=== PATIENT | female | born 2000 | race Two or more races ===

== ENCOUNTER 2024-10-14 02:08 | Emergency (ER) | payer OTHER ==
[~2024-10-14] VITALS: Ht 165.1 cm; Wt 58.4 kg
[2024-10-14 02:30] VITALS: BP 143/57; PULSE 83; RESP 18; O2SAT 100
[2024-10-14] MEDS ORDERED: ACET500T58 PO (03:59)
[2024-10-14] MEDS ORDERED: CEPH500C PO (03:59)
--- NOTE | 2024-10-14 04:01 | ED.PDOC ---
HPI Comments 23-YEAR-OLD FEMALE PRESENTS TO ER WITH COMPLAINTS OF LACERATION TO RIGHT 3RD TOE X1 DAY. PATIENT REPORTS THAT A GLASS CUP FELL AND HIT HER RIGHT 3RD TOE AT 12:00 A.M. PRIOR TO ARRIVAL TO ER AND SUSTAINED LACERATION TO RIGHT 3RD TOE AT THAT TIME. SHE RATES HER CURRENT PAIN A 6/10 LOCALIZED TO RIGHT 3RD TOE WITHOUT RADIATION. DENIES USE OF MEDICATIONS FOR CURRENT SYMPTOMS AND STATES SHE IS UP-TO-DATE ON HER TETANUS SHOT. REPORTS POSSIBILITY OF WITH HER LMP "1 MONTH AGO", DENYING ANY CURRENT RELATED SYMPTOMS. DENIES NUMBNESS/TINGLING OR ANY FURTHER SYMPTOMS/COMPLAINTS Chief Complaint: Laceration Time Seen by MD: 02:31 Primary Care Provider: [facility] Reviewed Notes: Nurses Notes, Medications, Allergies Allergies: Coded Allergies: NO KNOWN ALLERGIES (Unverified , 10/14/24) Home Meds Active Scripts Cephalexin Monohydrate (Cephalexin) 500 Mg Cap, 1 CAP PO BID for 7 Days, #14 CAP 0 Refills Prov:TARA VALLADARES 10/14/24 Acetaminophen (Acetaminophen) 500 Mg Tab, 500 MG PO Q4HPRN, #30 TAB 0 Refills Prov:TARA VALLADARES 10/14/24 Information Source: Patient Mode of Arrival: Ambulatory Complexity: Simple Laceration Length (cm): 3 Past Medical History PAST MEDICAL HISTORY: Denies Surgical History: Denies all surgeries LMP "1 MONTH AGO" Family History Family History: Unknown Social History Smoker: Non-Smoker Alcohol: Denies ETOH Use Drugs: Denies Drug Use Lives In: Home Constitutional: denies: chills, diaphoresis, fatigue, fever, malaise, sweats, weakness, others EENTM: denies: blurred vision, double vision, ear bleeding, ear discharge, ear drainage, ear pain, ear ringing, eye pain, eye redness, hearing loss, mouth pain, mouth swelling, nasal discharge, nose bleeding, nose congestion, nose pain, photophobia, tearing, throat pain, throat swelling, voice changes, others Respiratory: denies: cough, hemoptysis, orthopnea, SOB at rest, shortness of breath, SOB with excertion, stridor, wheezing, others Cardiovascular: denies: chest pain, dizzy spells, diaphoresis, Dyspnea on exertion, edema, irregular heart beat, left arm pain, lightheadedness, palpitations, PND, syncope, others Gastrointestinal: denies: abdomen distended, abdominal pain, blood streaked bowels, constipated, diarrhea, dysphagia, difficulty swallowing, hematemesis, melena, nausea, poor appetite, poor fluid intake, rectal bleeding, rectal pain, vomiting, others Genitourinary: denies: abnormal vagina bleeding, burning, dyspareunia, dysuria, flank pain, frequency, hematuria, incontinence, pain, , vagina discharge, urgency, others Neurological: denies: dizziness, fainting, headache, left sided numbness, left sided weakness, numbness, paresthesia, pre-existing deficit, right sided numbness, right sided weakness, seizure, speech problems, tingling, tremors, weakness, others Musculoskeletal: denies: back pain, gout, joint pain, joint swelling, muscle pain, muscle stiffness, neck pain, others Integumetry: reports: others ( STATED IN HPI) Allergic/Immunocompromised: denies: Difficulty Healing, Frequent Infections, Hives, Itching, others Hematologic/Lymphatic: denies: anemia, blood clots, easy bleeding, easy bruising, swollen glands, others Endocrine: denies: excessive hunger, excessive sweating, excessive thirst, excessive urination, flushing, intolerance to cold, intolerance to heat, unexplained weight gain, unexplained weight loss, others Psychiatric: denies: anxiety, bipolar disorder, depression, hopeless, panic disorder, schizophrenia, sleepless, suicidal, others Physical Exam General Appearance: No Apparent Distress HEENT: PERRL/EOMI Neck: Full Range of Motion, Non-Tender, Normal Respiratory: Chest Non-Tender, Lungs Clear, No Accessory Muscle Use, No Respiratory Distress, Normal Breath Sounds Cardiovascular: No Murmur, No Gallop, Regular Rate/Rhythm Breast Exam: Deferred Gastrointestinal: NOT DONE Genitalia: Deferred Pelvic: Deferred Rectal: Deferred Extremities: Normal capillary refill, Normal range of motion Neurologic: Alert, shellfish weigher II-XII nml as Tested, No Motor Deficits, Normal Affect, Normal Mood, No Sensory Deficits Cerebellar Function: Normal Reflexes: Normal Skin: Dry, Warm Peripheral Pulses: 2+ dorsalis pedis (R), 2+ dorsalis pedis (L), 2+ Radial (R), 2+ Radial (L), 2+ Brachial (R), 2+ Brachial (L) Lymphatic: No Adenopathy Was a procedure done? Was a procedure done?: Yes Sedation Sedation?: No Laceration Repair : Location RIGHT 3RD TOE Length 3 CM Anesthetic: Lidocaine (1%), Without epi Laceration Repair Prep: Saline (AND PEROXIDE), by Irrigation (WITHOUT ANY SIGNS OF FOREIGN BODY) Laceration Repair: Number of sutures (3 PLACED WITHOUT COMPLICATION), Size (5-0), Nylon, Simple, Non-adherent gauze Informed consent obtained: Yes Risks, benefits, and alternati: Yes Images 1 - 3 CM LACERATION NOTED. SLIGHT TTP/SWELLING/ERYTHEMA LOCALIZED TO WOUND EDGES. NO FOREIGN BODY/NAILBED INJURY/DEFORMITY/ FURTHER SKIN CHANGES NOTED. PULSES INTACT. STEADY GAIT APPRECIATED Differential diagnosis Generic Laceration: Fracture, Retained Foriegn Body, Neurovascular Injury X-Ray, Labs, Meds, VS Vital Signs Date Time Temp Pulse Resp B/P (MAP) Pulse Ox O2 Delivery O2 Flow Rate FiO2 10/14/24 03:59 Room Air* 0 21 10/14/24 02:30 98.4 83 18 143/57 (85) 100 Lab Test 10/14/24 03:45 Range/Units Urine Test Positive Negative URINE REVIEWED- BENEFITS/RISKS OF X-RAY IMAGING IN REVIEWED AND DISCUSSED WITH PATIENT-PATIENT REFUSED X-RAY IMAGING OF RIGHT 3RD TOE PATIENT NEUROVASCULARLY INTACT WOUND CARE/CLEANING DISCUSSED AND ADVISED ADVISED TO FOLLOW UP IN TWO DAYS FOR WOUND CHECK ADVISED TO FOLLOW UP IN 10-14 DAYS FOR REMOVAL OF SUTURES PATIENT PROVIDED INFORMATION WITH REGARDS TO LOCAL OBGYN'S AND ADVISED TO FOLLOW UP IN 1-2 DAYS ADVISED TO FOLLOW UP WITH PCP IN 1-2 DAYS PATIENT VERBALIZED UNDERSTANDING AND AGREEABLE WITH CURRENT PLAN OF CARE ADVISED TO RETURN TO ER IMMEDIATELY IF SYMPTOMS WORSEN Images Reviewed?: Images reviewed and evaluated by me Time of 1ST Reevaluation: 04:00 Reevaluation 1ST: N/A Patient Education/Counseling: Diagnosis, Treatment, Prognosis, Need For Follow Up Family Education/Counseling: No Family Present Departure 1 Departure Time of Disposition: 04:32 Impression: Primary Impression: Laceration of toe of right foot Qualified Codes: S91.119A - Laceration without foreign body of unspecified toe without damage to nail, initial encounter Additional Impression: Early stage of Disposition: 01 HOME / SELF CARE / HOMELESS Condition: Stable e-Prescriptions Cephalexin Monohydrate (Cephalexin) 500 Mg Cap 1 CAP PO BID for 7 Days, #14 CAP 0 Refills Prov: TARA VALLADARES 10/14/24 Acetaminophen (Acetaminophen) 500 Mg Tab 500 MG PO Q4HPRN, #30 TAB 0 Refills Prov: ATRA VALLADARES 10/14/24 Discharged With: Self Critical Care Note Critical Care Time?: No Stability Stability form required: No Heart Score Heart Score: Heart Score Response (Comments) Value History N/A 0 EKG N/A 0 Age N/A 0 Risk Factors N/A 0 Troponin N/A 0 Total 0 TARA VALLADARES Oct 14, 2024 04:01
== END 2024-10-14 04:37 | disposition home or self-care (01) ==
LOC: ER 02:08
DX: S91.114A Laceration without foreign body of right lesser toe(s) without damage to nail, initial encounter (principal); Z32.01 Encounter for pregnancy test, result positive; Z79.899 Other long term (current) drug therapy; W25.XXXA Contact with sharp glass, initial encounter; Y93.89 Activity, other specified; Y92.89 Other specified places as the place of occurrence of the external cause; Y99.8 Other external cause status
CPT/HCPCS: 12002; 81025; 99283; J2003

== ENCOUNTER 2025-03-16 10:35 | Emergency (ER) | payer MEDICAID, OTHER ==
[~2025-03-16] VITALS: Ht 165.1 cm; Wt 71.6 kg
[~2025-03-16 10:35] MED LIST: ACET500T58 PO; CEPH500C PO
[2025-03-16 10:46] VITALS: TEMP 97.4
--- NOTE | 2025-03-16 11:18 | ED.PDOC ---
General HPI Comments This is a 24 year old female presenting to the ED with chief complaint of dysuria. Patient reports that she is currently 7 months and has been experiencing dysuria with associated white, thick vaginal discharge for the past 2 days. Patient denies any N/V/D, hematuria, fever, chills, flank pain, or abdominal pain. Chief Complaint: Urinary Time Seen by MD: 11:16 Primary Care Provider: NONE Reviewed notes: Nurses Notes, Medications, Allergies Allergies: Coded Allergies: NO KNOWN ALLERGIES (Unverified , 10/14/24) Home Meds Active Scripts Cephalexin Monohydrate (Cephalexin) 500 Mg Cap, 1 CAP PO BID for 7 Days, #14 CAP 0 Refills Prov:TARA VALLADARES 10/14/24 Acetaminophen (Acetaminophen) 500 Mg Tab, 500 MG PO Q4HPRN, #30 TAB 0 Refills Prov:TARA VALLADARES 10/14/24 Information Source: Patient Mode of Arrival: Ambulatory Severity: Moderate Timing: Days Duration: Since onset Prehospital treatment: None Onset: Spontaneous Symptoms: Dysuria History of: None Location: None associated signs and symptoms: Dysuria Past Medical History PAST MEDICAL HISTORY: Denies Surgical History: Denies all surgeries STORY WRITER History: No Pertinent STORY WRITER History Family History Family History: Unknown Social History Smoker: Non-Smoker Alcohol: Denies ETOH Use Drugs: Denies Drug Use Lives In: Home Constitutional: denies: chills, diaphoresis, fatigue, fever, malaise, sweats, weakness, others EENTM: denies: blurred vision, double vision, ear bleeding, ear discharge, ear drainage, ear pain, ear ringing, eye pain, eye redness, hearing loss, mouth pain, mouth swelling, nasal discharge, nose bleeding, nose congestion, nose pain, photophobia, tearing, throat pain, throat swelling, voice changes, others Respiratory: denies: cough, hemoptysis, orthopnea, SOB at rest, shortness of breath, SOB with excertion, stridor, wheezing, others Cardiovascular: denies: chest pain, dizzy spells, diaphoresis, Dyspnea on exertion, edema, irregular heart beat, left arm pain, lightheadedness, palpitations, PND, syncope, others Gastrointestinal: denies: abdomen distended, abdominal pain, blood streaked bowels, constipated, diarrhea, dysphagia, difficulty swallowing, hematemesis, melena, nausea, poor appetite, poor fluid intake, rectal bleeding, rectal pain, vomiting, others Genitourinary: reports: dysuria, , vagina discharge; denies: abnormal vagina bleeding, burning, dyspareunia, flank pain, frequency, hematuria, incontinence, pain, urgency, others Neurological: denies: dizziness, fainting, headache, left sided numbness, left sided weakness, numbness, paresthesia, pre-existing deficit, right sided numbness, right sided weakness, seizure, speech problems, tingling, tremors, weakness, others Musculoskeletal: denies: back pain, gout, joint pain, joint swelling, muscle pain, muscle stiffness, neck pain, others Integumetry: denies: bruises, change in color, change in hair/nails, dryness, laceration, lesions, lumps, rash, wounds, others Allergic/Immunocompromised: denies: Difficulty Healing, Frequent Infections, Hives, Itching, others Hematologic/Lymphatic: denies: anemia, blood clots, easy bleeding, easy bruising, swollen glands, others Endocrine: denies: excessive hunger, excessive sweating, excessive thirst, excessive urination, flushing, intolerance to cold, intolerance to heat, unexplained weight gain, unexplained weight loss, others Psychiatric: denies: anxiety, bipolar disorder, depression, hopeless, panic disorder, schizophrenia, sleepless, suicidal, others All Other Systems: Reviewed and Negative Physical Exam General Appearance: Mild Distress HEENT: Normal ENT Inspection, PERRL/EOMI Neck: Full Range of Motion, Non-Tender, Normal, Normal Inspection Respiratory: Chest Non-Tender, Lungs Clear, No Accessory Muscle Use, No Respiratory Distress, Normal Breath Sounds Cardiovascular: No Edema, No JVD, No Murmur, No Gallop, Normal Peripheral Pulses, Regular Rate/Rhythm Breast Exam: Deferred Gastrointestinal: No Organomegaly, Non Tender, No Pulsatile Mass, Normal Bowel Sounds, Soft Genitalia: Deferred Pelvic: Discharge Rectal: Deferred Extremities: No calf tenderness, Normal capillary refill, Normal inspection, Normal range of motion, Non-tender, No pedal edema Neurologic: Alert, university teacher II-XII nml as Tested, No Motor Deficits, Normal Affect, Normal Mood, No Sensory Deficits Cerebellar Function: Normal Reflexes: Normal Skin: Dry, Normal Color, Warm Peripheral Pulses: 1+ carotid (R), 1+ carotid (L) Lymphatic: No Adenopathy Was a procedure done? Was a procedure done?: No Differential Diagnosis Kidney stone (Female): Pyelonephritis, Urinary obstruction Kidney stone (Male): N/A Penile/Scrotal: N/A Urinary Problem (Male): N/A Urinary Problem (Female): PID, Pyelonephritis, UTI, Vaginitis X-Ray, Labs, Meds, VS Vital Signs Date Time Temp Pulse Resp B/P (MAP) Pulse Ox O2 Delivery O2 Flow Rate FiO2 03/16/25 10:46 97.4 120 20 127/79 (95) 100 97.4 Lab Test 03/16/25 10:49 Range/Units Urine Color Yellow Yellow Urine Clarity Clear Clear Urine pH 6.5 5.0-9.0 Urine Specific [place] 1.028 1.001-1.035 Urine Protein Trace H Negative Urine Ketones Trace Negative Urine Blood Negative Negative /uL Urine Nitrite Negative Negative Urine Bilirubin Negative Negative Urine Urobilinogen Normal Negative mg/dL Urine Leukocyte Esterase 2+ Negative /uL Urine RBC 3 0 - 4 /hpf Urine Microscopic WBC 4 0-5 /HPF Urine Squamous Epithelial Cells Few <5 /hpf Urine Bacteria None seen None Seen /hpf Urine Mucus Few None Seen Urine Glucose Normal Normal mg/dL X-Ray, Labs, Meds, VS Comment Course in the emergency department eventful patient came in because of burning upon urination and also minimal discharge patient is seven months Urine shows 2+ leukocyte esterase Patient will need to drink lots of fluids and take your medication as directed and follow up with her manager of engineering Time of 1ST Reevaluation: 12:16 Reevaluation 1ST: Unchanged Consultation: PCP, area attendant Patient Education/Counseling: Diagnosis, Treatment, Prognosis, Need For Follow Up Family Education/Counseling: Diagnosis, Treatment, Prognosis, Need For Follow Up, No Family Present SEPSIS Sepsis Screen Date sepsis recognized/suspect: Mar 16, 2025 Time Sepsis recognized/suspect: 104 Recent Procedure: No On Antibiotic Therapy: No Respiratory Rate >20: No Heart Rate >90: Yes Temp<36 C (96.8 F) or >38.3 C: No SBP <90 or MAP <65 mmHG: No New Acute Mental Status Change: No Is the patient on CPAP, BIPAP,: No Vital Signs Date Time Temp Pulse Resp B/P (MAP) Pulse Ox O2 Delivery O2 Flow Rate FiO2 03/16/25 10:46 97.4 120 20 127/79 (95) 100 97.4 Departure 1 Departure Time of Disposition: 12:40 Impression: Primary Impression: UTI (urinary tract infection) Qualified Codes: N30.00 - Acute cystitis without hematuria Additional Impression: and not yet delivered in second trimester Disposition: 01 HOME / SELF CARE / HOMELESS Condition: Fair Additional Instructions: Push fluids and use Sitz bath e-Prescriptions Cefdinir (Cefdinir) 300 Mg Cap 1 CAP PO BID for 7 Days, #14 CAP Prov: ANUJA GALLO MD 03/16/25 Discharged With: Self Critical Care Note Critical Care Time?: No Stability Stability form required: No Heart Score Heart Score: Heart Score Response (Comments) Value History N/A 0 EKG N/A 0 Age <45 0 Risk Factors No known risk factors 0 Troponin N/A 0 Total 0 I personally scribed for ANUJA GALLO MD ([email or web address]) on 03/16/25 at 11:18. Electronically submitted by Gary Herron ([email or web address]). ANUJA GALLO MD Mar 16, 2025 11:18
[2025-03-16 11:51] LABS: Urine Protein, UAD TRACE (Negative)
[2025-03-16] MEDS ORDERED: CEFD300C2 PO (12:44)
[2025-03-16 12:48] VITALS: PULSE 84; RESP 16; O2SAT 96
[2025-03-16 13:22] VITALS: BP 138/82; PULSE 92; RESP 18; O2SAT 98
== END 2025-03-16 13:23 | disposition home or self-care (01) ==
LOC: ER 10:35
DX: O23.43 Unspecified infection of urinary tract in pregnancy, third trimester (principal); N39.0 Urinary tract infection, site not specified; Z3A.34 34 weeks gestation of pregnancy
CPT/HCPCS: 81001

== ENCOUNTER 2025-05-01 16:14 | Emergency (ER) | payer MEDICAID ==
[~2025-05-01] VITALS: Ht 165.1 cm; Wt 76.7 kg
[~2025-05-01 16:14] MED LIST changes: +CEFD300C2 PO
[2025-05-01 16:16] VITALS: BP 120/84; PULSE 116; RESP 18; TEMP 99.4; O2SAT 98
--- NOTE | 2025-05-01 16:52 | ED.PDOC ---
Musculoskeletal HPI Comments 24 y/o F, presents to the ED for CC of bilateral extremity swelling. Patient states, she has been experiencing bilateral feet swelling with associated shortness of breath onset, [id number]. Patient reports, that she is currently [id number] ; and has an CRISTY on 05/21/25. Patient denies headaches, blurred vision, vaginal cramping, abdominal pain, nausea, or vomiting. No other symptoms or modifiers are present at this time. Chief Complaint: Extremity Swelling Time Seen by MD: 16:50 Primary Care Provider: NONE Reviewed Notes: Nurses Notes, Medications, Allergies Allergies: Coded Allergies: NO KNOWN ALLERGIES (Unverified , 10/14/24) Home Meds Active Scripts Cefdinir (Cefdinir) 300 Mg Cap, 1 CAP PO BID for 7 Days, #14 CAP Prov:ANUJA GALLO MD 03/16/25 Cephalexin Monohydrate (Cephalexin) 500 Mg Cap, 1 CAP PO BID for 7 Days, #14 CAP 0 Refills Prov:TARA VALLADARES 10/14/24 Acetaminophen (Acetaminophen) 500 Mg Tab, 500 MG PO Q4HPRN, #30 TAB 0 Refills Prov:TARA VALLADARES 10/14/24 Information Source: Patient Mode of Arrival: Ambulatory Location: Bilateral Extremity Location: Foot Timing: Weeks Severity: Moderate Able to Move Extremity: Yes Bear Weight: Fully Pain: None Mechanism: Spontaneous Circumstances: Spontaneous Onset of Symptoms: Spontaneous Symptoms: Swelling DVT Risk Factors: NONE Last Tetanus: Unknown Associated signs and symptoms: Swelling Past Medical History PAST MEDICAL HISTORY: Denies Surgical History: Denies all surgeries EMPLOYEE RELATION MANAGER History: No Pertinent EMPLOYEE RELATION MANAGER History Family History Family History: Unknown Social History Smoker: Non-Smoker Alcohol: Denies ETOH Use Drugs: Denies Drug Use Lives In: Home Constitutional: denies: chills, diaphoresis, fatigue, fever, malaise, sweats, weakness, others EENTM: denies: blurred vision, double vision, ear bleeding, ear discharge, ear drainage, ear pain, ear ringing, eye pain, eye redness, hearing loss, mouth pain, mouth swelling, nasal discharge, nose bleeding, nose congestion, nose pain, photophobia, tearing, throat pain, throat swelling, voice changes, others Respiratory: reports: shortness of breath; denies: cough, hemoptysis, orthopnea, SOB at rest, SOB with excertion, stridor, wheezing, others Cardiovascular: denies: chest pain, dizzy spells, diaphoresis, Dyspnea on exertion, edema, irregular heart beat, left arm pain, lightheadedness, palpitations, PND, syncope, others Gastrointestinal: denies: abdomen distended, abdominal pain, blood streaked bowels, constipated, diarrhea, dysphagia, difficulty swallowing, hematemesis, melena, nausea, poor appetite, poor fluid intake, rectal bleeding, rectal pain, vomiting, others Genitourinary: reports: ; denies: abnormal vagina bleeding, burning, dyspareunia, dysuria, flank pain, frequency, hematuria, incontinence, pain, vagina discharge, urgency, others Neurological: denies: dizziness, fainting, headache, left sided numbness, left sided weakness, numbness, paresthesia, pre-existing deficit, right sided numbness, right sided weakness, seizure, speech problems, tingling, tremors, weakness, others Musculoskeletal: reports: others (BILATERAL FEET SWELLING); denies: back pain, gout, joint pain, joint swelling, muscle pain, muscle stiffness, neck pain Integumetry: denies: bruises, change in color, change in hair/nails, dryness, laceration, lesions, lumps, rash, wounds, others Allergic/Immunocompromised: denies: Difficulty Healing, Frequent Infections, Hi ves, Itching, others Hematologic/Lymphatic: denies: anemia, blood clots, easy bleeding, easy bruising, swollen glands, others Endocrine: denies: excessive hunger, excessive sweating, excessive thirst, excessive urination, flushing, intolerance to cold, intolerance to heat, unexplained weight gain, unexplained weight loss, others Psychiatric: denies: anxiety, bipolar disorder, depression, hopeless, panic disorder, schizophrenia, sleepless, suicidal, others All Other Systems: Reviewed and Negative Physical Exam General Appearance: No Apparent Distress, Normal, Other () HEENT: Normal ENT Inspection, Pharynx Normal Neck: Full Range of Motion, Non-Tender, Normal, Normal Inspection Respiratory: Chest Non-Tender, Lungs Clear, No Accessory Muscle Use, No Respiratory Distress, Normal Breath Sounds Cardiovascular: No Edema, No Murmur, No Gallop, Normal Peripheral Pulses, Regular Rate/Rhythm Breast Exam: Deferred Gastrointestinal: No Organomegaly, Non Tender, No Pulsatile Mass, Normal Bowel Sounds, Soft Genitalia: Deferred Pelvic: Deferred Rectal: Deferred Extremities: No calf tenderness, Normal capillary refill, Normal inspection, Normal range of motion, Non-tender, No pedal edema Musculoskeletal : Apperance: Normal Neurologic: Alert, wood casket maker II-XII nml as Tested, No Motor Deficits, Normal Affect, Normal Mood, No Sensory Deficits Cerebellar Function: Normal Reflexes: Normal Skin: Dry, Normal Color, Warm Lymphatic: No Adenopathy Was a procedure done? Was a procedure done?: No Differential Diagnosis EXT Differential Diagnosis: Other (INCREASED FLUID PRODUCTION, HORMONAL) X-Ray, Labs, Meds, VS Vital Signs Date Time Temp Pulse Resp B/P (MAP) Pulse Ox O2 Delivery O2 Flow Rate FiO2 05/01/25 16:16 99.4 116 18 120/84 98 99.4 Lab Test 05/01/25 17:14 05/01/25 16:51 Range/Units White Blood Count 8.9 4.4-10.8 10^3/uL Red Blood Count 3.57 L 4.0-5.20 10^6/uL Hemoglobin 10.3 L 12.2-16.2 g/dL Hematocrit 30.8 L 36.0-46.0 % Mean Corpuscular Volume 86.3 80.0-100.0 fL Mean Corpuscular Hemoglobin 28.9 28.0-32.0 pg Mean Corpuscular Hemoglobin Concent 33.5 32.0-36.0 g/dL Red Cell Distribution Width 14.1 11.8-14.3 % Platelet Count 397 140-450 10^3/uL Mean Platelet Volume 7.3 6.9-10.8 fL Neutrophils (%) (Auto) 68.0 37.0-80.0 % Lymphocytes (%) (Auto) 19.5 10.0-50.0 % Monocytes (%) (Auto) 8.2 0.0-12.0 % Eosinophils (%) (Auto) 3.8 0.0-7.0 % Basophils (%) (Auto) 0.5 0.0-2.0 % Neutrophils # (Auto) 6.1 1.6-8.6 10 ^3/uL Lymphocytes # (Auto) 1.7 0.4-5.4 10 ^3/uL Monocytes # (Auto) 0.7 0-1.3 10 ^3/uL Eosinophils # (Auto) 0.3 0-0.8 10 ^3/uL Basophils # (Auto) 0 0-0.2 10 ^3/uL Nucleated Red Blood Cells 0.0 % Sodium Level 138 136-145 mmol/L Potassium Level 4.0 3.5-5.1 mmol/L Chloride Level 107 98-107 mmol/L Carbon Dioxide Level 22 20-31 mmol/L Anion Gap 9 5-15 Blood Urea Nitrogen 6 L 9-23 mg/dL Creatinine 0.62 0.550-1.02 mg/dL Glomerular Filtration Rate Calc 129 >90 mL/min BUN/Creatinine Ratio 9.7 L 10.0-20.0 Serum Glucose 93 74-106 mg/dL Calcium Level 9.0 8.7-10.4 mg/dL Urine Color Yellow Yellow Urine Clarity Turbid H Clear Urine pH 6.0 5.0-9.0 Urine Specific [place] 1.026 1.001-1.035 Urine Protein Trace H Negative Urine Ketones Trace Negative Urine Blood Negative Negative /uL Urine Nitrite Negative Negative Urine Bilirubin Negative Negative Urine Urobilinogen 3 H Negative mg/dL Urine Leukocyte Esterase 3+ Negative /uL Urine RBC 8 0 - 4 /hpf Urine Microscopic WBC 12 H 0-5 /HPF Urine Squamous Epithelial Cells Mod <5 /hpf Urine Bacteria Few H None Seen /hpf Urine Mucus Few None Seen Urine Glucose Normal Normal mg/dL X-Ray, Labs, Meds, VS Comment Imaging was reviewed by this provider, there is no obvious pathological or acute disease process. Pending radiology review Labs were reviewed by this provider, no abnormalities Vital signs reviewed by this provider, clinically stable Time of 1ST Reevaluation: 17:20 Reevaluation 1ST: Unchanged Patient Education/Counseling: Diagnosis, Treatment, Need For Follow Up (Follow up with OBGYN next available appointment. Patient advised to have bed rest.) Family Education/Counseling: No Family Present Departure 1 Departure Time of Disposition: 18:38 Impression: Primary Impression: Swelling of lower extremity during in third trimester Disposition: 01 HOME / SELF CARE / HOMELESS Condition: Stable Discharged With: Self Critical Care Note Critical Care Time?: No Stability Stability form required: No Heart Score Heart Score: Heart Score Response (Comments) Value History N/A 0 EKG N/A 0 Age N/A 0 Risk Factors N/A 0 Troponin N/A 0 Total 0 I personally scribed for ALBERT BURCIAGA BUNCH BREAKER MACHINE OPERATOR ([email or web address]) on 05/01/25 at 16:52. Electronically submitted by Amelie Doran ([facility]). I personally scribed for ALBERT BURCIAGA BUNCH BREAKER MACHINE OPERATOR ([email or web address]) on 05/01/25 at 16:57. Electronically submitted by Amelie Doran ([facility]). I personally scribed for ALBERT BURCIAGA BUNCH BREAKER MACHINE OPERATOR ([email or web address]) on 05/01/25 at 17:12. Electronically submitted by Amelie Doran ([facility]). ALBERT BURCIAGA BUNCH BREAKER MACHINE OPERATOR May 01, 2025 16:52
[2025-05-01 17:27] LABS: Hematocrit 30.8 % (36.0-46.0); Hemoglobin 10.3 g/dL (12.2-16.2); Mean Corpuscular Hemoglobin 28.9 pg (28.0-32.0); Mean Corpuscular Volume 86.3 fL (80.0-100.0); Nucleated Red Blood Cells % 0.0 %
[2025-05-01 17:34] LABS: Potassium 4.0 mmol/L (3.5-5.1); Sodium 138 mmol/L (136-145)
[2025-05-01 17:35] LABS: Anion Gap 9 (5-15); Calcium 9.0 mg/dL (8.7-10.4); Carbon Dioxide 22 mmol/L (20-31)
[2025-05-01 17:38] LABS: Chloride 107 mmol/L (98-107)
[2025-05-01 17:40] LABS: BUN/Creatinine Ratio 9.7 (10.0-20.0); Glucose 93 mg/dL (74-106)
[2025-05-01 17:58] LABS: Blood Urea Nitrogen 6 mg/dL (9-23)
[2025-05-01 18:09] LABS: Urine Protein, UAD TRACE (Negative)
[2025-05-01] MEDS ORDERED: CEPH500C PO (18:54)
== END 2025-05-01 18:56 | disposition home or self-care (01) ==
LOC: ER 16:14
DX: O26.893 Other specified pregnancy related conditions, third trimester (principal); M79.89 Other specified soft tissue disorders; Z3A.00 Weeks of gestation of pregnancy not specified
CPT/HCPCS: 36415; 80048; 81001; 85025

== ENCOUNTER 2025-05-14 16:23 | Inpatient (IN) | payer MEDICAID ==
[~2025-05-14] VITALS: Ht 165.1 cm; Wt 74.8 kg
[2025-05-14] MEDS: LACT. RINGERS/OXYTOCIN 20UNITS 500 ML IV ONE ×2 (16:45→17:15)
[2025-05-14] MEDS ORDERED: NALBUPHINE HCL 10 MG/1ml INJECTION IV PRN ×2 (16:45→18:30)
[2025-05-14 17:39] LABS: Hematocrit 29.4 % (36.0-46.0); Hemoglobin 10.2 g/dL (12.2-16.2); Mean Corpuscular Hemoglobin 28.9 pg (28.0-32.0); Mean Corpuscular Volume 83.3 fL (80.0-100.0); Nucleated Red Blood Cells % 0.2 %
[2025-05-14 17:57] LABS: Alanine Aminotransferase 14 U/L (7-40); Albumin 3.9 g/dL (3.2-4.8); Anion Gap 11 (5-15); BUN/Creatinine Ratio 12.1 (10.0-20.0); Glucose 82 mg/dL (74-106); Potassium 4.0 mmol/L (3.5-5.1); Sodium 138 mmol/L (136-145); Total Protein 6.7 g/dL (5.7-8.2)
[2025-05-14 17:58] LABS: Alkaline Phosphatase 165 U/L (46-116); Bilirubin, Total 0.3 mg/dL (0.2-1.0); Blood Urea Nitrogen 8 mg/dL (9-23); Calcium 8.6 mg/dL (8.7-10.4); Carbon Dioxide 19 mmol/L (20-31); Chloride 108 mmol/L (98-107)
[2025-05-14 18:05] LABS: INR 0.9 (0.9-1.15); Partial Thromboplastin Time 24.2 SEC (24.5-34.5); Prothrombin Time 9.6 sec (9.3-11.8)
[2025-05-14] MEDS: LACTATED RINGER'S 1,000 ML IV SCH (18:07)
[2025-05-14 18:35] LABS: Urine Protein, UAD TRACE (Negative)
[2025-05-14 18:48] LABS: Cannabinoid Screen, Urine Pos (NEGATIVE)
[2025-05-14 18:50] LABS: Amphetamine Screen, Urine Neg (NEGATIVE); Barbiturate Scree,Urine Neg (NEGATIVE); Benzodiazephine Screen, Urine Neg (NEGATIVE); Cocaine Screen, Urine Neg (NEGATIVE); Opiate Scree,Urine Neg (NEGATIVE); Phencyclidine Screen, Urine Neg (NEGATIVE)
--- NOTE | 2025-05-14 20:21 | DVH ---
OB ULTRASOUND, LIMITED CLINICAL INDICATION: Confirmation of presenting part TECHNIQUE: Multiple grayscale ultrasound and M-mode images were obtained of the pelvis for evaluation of intrauterine . COMPARISON: None FINDINGS /impression: Placenta anterior, no placenta previa or abruption heart tones 155 beats per minute Current YUKO 21.2 cm presentation: Cephalic
[2025-05-14] MEDS: LIDOCAINE 2%HCL (LOCAL ANESTH.) INJ 20ML MDV IJ PRN (21:17)
[2025-05-14] MEDS: DERMOPLAST 60ML BOTTLE TOP PRN (21:17)
[2025-05-14] MEDS: PHISODERM TOP SOLN 240ML BTL TOP PRN (21:18)
[2025-05-14] MEDS: WITCH HAZEL-GLYCERIN PAD TOP PRN (21:18)
--- NOTE | 2025-05-15 07:44 | DVHHP2 ---
OB CC & HPI Date Date of Admission: May 14, 2025 Patient Identification: : 1 Para: 0 EDC: May 20, 2025 EGA: 39 10/15 Chief Complaints: Reason for admission: other (polyhydramnios) Indication for induction: other (polyhydramnios) Admission Nurse Assessment Rev: Yes Past Medical History Cardiac: No pertinent Hx Pulmonary: No pertinent Hx Central Nervous System: No pertinent Hx GI: No pertinent Hx Hemotology/Oncology: No pertinent Hx Hepatobiliary: No pertinent Hx Psychiatric: No pertinent Hx Musculoskeletal: No pertinent Hx Rheumotologic: No pertinent Hx Infectious Disease: No peritnent Hx ENT: No pertinent Hx Renal/: No pertinent Hx Endocrine: No pertinent Hx Dermatology: No pertinent Hx Past Surgical History: No pertinent Hx OB History OB History Care: None Obstetrical Complications: Other (polyhydramnios) Medical Complications: None Allergies: Coded Allergies: NO KNOWN ALLERGIES (Unverified , 10/14/24) Home Meds Active Scripts Cephalexin Monohydrate (Cephalexin) 500 Mg Cap, 1 CAP PO TID for 5 Days, #15 CAP Prov:ALBERT BURCIAGA 05/01/25 Cefdinir (Cefdinir) 300 Mg Cap, 1 CAP PO BID for 7 Days, #14 CAP Prov:ANUJA GALLO MD 03/16/25 Cephalexin Monohydrate (Cephalexin) 500 Mg Cap, 1 CAP PO BID for 7 Days, #14 CAP 0 Refills Prov:TARA VALLADARES 10/14/24 Acetaminophen (Acetaminophen) 500 Mg Tab, 500 MG PO Q4HPRN, #30 TAB 0 Refills Prov:TARA VALLADARES 10/14/24 Current Medications Current Medications Medications (Trade) Dose Ordered Sig/Marco Route PRN Reason Start Time Stop Time Status Last Admin Lactated Ringer's 1,000 ml @ 125 mls/hr Q8H IV 05/14/25 16:45 05/14/25 18:07 Nalbuphine HCl (Nubain) 10 mg Q4HP PRN IV MODERATE PAIN (4-6 PAIN SCALE) 05/14/25 16:45 05/14/25 18:42 DC Witch Keisha (Tucks) 1 pad PRN PRN TOP PERINEAL AREA DISCOMFORT 05/14/25 16:45 05/14/25 21:18 Sodium Lauryl Sulfate (Phisoderm) 240 ml PRN PRN TOP PERINEAL AREA DISCOMFORT 05/14/25 16:45 05/14/25 21:18 Benzocaine (Dermoplast) 1 applic PRN PRN TOP PERINEAL AREA DISCOMFORT 05/14/25 16:45 05/14/25 21:17 Lidocaine HCl (Xylocaine) 20 ml ONCE PRN IJ PERINEAL AREA DISCOMFORT 05/14/25 16:45 05/14/25 21:17 Nalbuphine HCl (Nubain) 10 mg Q4HP PRN IV MODERATE PAIN (4-6 PAIN SCALE) 05/14/25 18:30 Penicillin G Potassium 3258771 units/Dextrose 50 ml @ 100 mls/hr Q4H IV 05/14/25 22:30 Ondansetron HCl (Zofran) 4 mg Q4HPRN PRN IV NAUSEA / VOMITING 05/14/25 18:30 Misoprostol (Cytotec) 50 mcg Q4HPRN PRN PO CERVICAL RIPENING 05/14/25 19:15 05/15/25 03:32 Family & Social History Family/Social History Blood Type: A+ Rubella: unknown RPR/VDRL: Negative GBS Status: Positive HBsAG: Negative Review of Systems Constitutional: No symptom reported Ears, Nose, & Throat: No symptom reported Eyes: No symptom reported Pulmonary/Respiratory: No symptom reported Cardiovascular: No symptom reported Gastrointestinal: No symptom reported Genitourinary: No symptom reported Musculoskeletal: No symptom reported Skin: No symptom reported Psychiatric: No symptom reported Endocrine: No symptom reported Hemotologic/Lymphatic: No symptom reported OB Admission Exam Physical Exam HEENT: TMs Normal, Fontanelles Normal, Nasal Mucosa Normal, Eyes non-injected, Oropharynx Normal, PERRLA, Moist Membranes, EOMI Heart: Rhythm Normal Lungs: Clear Abdomen: Non tender Extremities: Normal Reflexes: Normal Cervical Dilatation: Fingertip Effacement: 25% Station: Ballotable Membranes: Intact Heart Rate: 130's Accelerations: Accelerations Present Decelerations: No Decelerations Short Term Variability: Present Care Home Variability: Average (6-25) Contractions on Admission: None Intensity: Mild OB Plan Plan Admitting Diagnosis: Induction of labor Other Plan: Cytotec induction MILES ESCALANTE DO May 15, 2025 07:44
[2025-05-15] MEDS ORDERED: ACETAMINOPHEN 500 MG TAB or CAP PO PRN (07:45)
--- NOTE | 2025-05-15 07:51 | DVHPN2 ---
OB Labor Progress Note Date and Time Seen Date Seen: May 15, 2025 Time Seen: 07:45 Objective Vital Signs nl Monitoring Method Monitoring Method: External Heart Rate Heart Rate Baseline: 130 Heart Rate Variability: Moderate Presence of FHR Accelerations: Yes Presence of FHR Decelerations: No Heart Rate Type of Decel: Variable Decelerations Changes in Trends of Patterns: No Are all 5 Components of the FH: Yes Contractions Contractions Frequency: Occasional Contractions Intensity: Mild Membranes Membranes: Intact Vaginal Exam Vag Exam Deferred: Yes Vaginal Exam Station: 0 Vaginal Exam Presentation: VTX Vaginal Exam Show: None Medications Medications - Pain Medications: Cytotec Lab Results Lab Results Current Medications Medications (Trade) Dose Ordered Sig/Marco Start Time Stop Time Status Last Admin Dose Admin Lactated Ringer's 1,000 ml @ 125 mls/hr Q8H 05/14/25 16:45 05/14/25 18:07 Nalbuphine HCl (Nubain) 10 mg Q4HP PRN 05/14/25 16:45 05/14/25 18:42 DC Rock Valdes (Tucks) 1 pad PRN PRN 05/14/25 16:45 05/14/25 21:18 Sodium Lauryl Sulfate (Phisoderm) 240 ml PRN PRN 05/14/25 16:45 05/14/25 21:18 Benzocaine (Dermoplast) 1 applic PRN PRN 05/14/25 16:45 05/14/25 21:17 Lidocaine HCl (Xylocaine) 20 ml ONCE PRN 05/14/25 16:45 05/14/25 21:17 Oxytocin 500 ml @ 999 mls/hr Q31M ONCE 05/14/25 16:45 05/14/25 17:15 DC Oxytocin 500 ml @ 125 mls/hr Q4H ONCE 05/14/25 17:15 05/14/25 21:14 DC Nalbuphine HCl (Nubain) 10 mg Q4HP PRN 05/14/25 18:30 Penicillin G Potassium 50 ml @ 100 mls/hr ONCE ONCE 05/14/25 18:30 05/14/25 18:59 DC Penicillin G Potassium [id number] units/Dextrose 50 ml @ 100 mls/hr Q4H 05/14/25 22:30 Ondansetron HCl (Zofran) 4 mg Q4HPRN PRN 05/14/25 18:30 Misoprostol (Cytotec) 50 mcg Q4HPRN PRN 05/14/25 19:15 05/15/25 03:32 Laboratory Tests Test 05/14/25 17:30 05/14/25 17:19 Range/Units Urine Color Light-yellow Yellow Urine Clarity Turbid H Clear Urine pH 7.5 5.0-9.0 Urine Specific [place] 1.021 1.001-1.035 Urine Protein Trace H Negative Urine Ketones Negative Negative Urine Blood Negative Negative /uL Urine Nitrite Negative Negative Urine Bilirubin Negative Negative Urine Urobilinogen Normal Negative mg/dL Urine Leukocyte Esterase 3+ Negative /uL Urine RBC <1 0 - 4 /hpf Urine Microscopic WBC 1 0-5 /HPF Urine Squamous Epithelial Cells Mod <5 /hpf Urine Bacteria None seen None Seen /hpf Urine Mucus Few None Seen Urine Glucose Normal Normal mg/dL Urine Opiates Screen Neg NEGATIVE Urine Fentanyl Screen Neg NEGATIVE Urine Barbiturates Screen Neg NEGATIVE Urine Phencyclidine Screen Neg NEGATIVE Urine Amphetamines Screen Neg NEGATIVE Urine Benzodiazepines Screen Neg NEGATIVE Urine Cocaine Screen Neg NEGATIVE Urine Cannabinoids Screen Pos NEGATIVE Chlamydia trachomatis (BELINDA) Pending Neisseria gonorrhoeae (BELINDA) Pending White Blood Count 9.4 4.4-10.8 10^3/uL Red Blood Count 3.53 L 4.0-5.20 10^6/uL Hemoglobin 10.2 L 12.2-16.2 g/dL Hematocrit 29.4 L 36.0-46.0 % Mean Corpuscular Volume 83.3 80.0-100.0 fL Mean Corpuscular Hemoglobin 28.9 28.0-32.0 pg Mean Corpuscular Hemoglobin Concent 34.6 32.0-36.0 g/dL Red Cell Distribution Width 14.3 11.8-14.3 % Platelet Count 380 140-450 10^3/uL Mean Platelet Volume 7.5 6.9-10.8 fL Neutrophils (%) (Auto) 68.8 37.0-80.0 % Lymphocytes (%) (Auto) 18.7 10.0-50.0 % Monocytes (%) (Auto) 8.0 0.0-12.0 % Eosinophils (%) (Auto) 3.6 0.0-7.0 % Basophils (%) (Auto) 0.9 0.0-2.0 % Neutrophils # (Auto) 6.5 1.6-8.6 10 ^3/uL Lymphocytes # (Auto) 1.8 0.4-5.4 10 ^3/uL Monocytes # (Auto) 0.8 0-1.3 10 ^3/uL Eosinophils # (Auto) 0.3 0-0.8 10 ^3/uL Basophils # (Auto) 0.1 0-0.2 10 ^3/uL Nucleated Red Blood Cells 0.2 % Prothrombin Time 9.6 9.3-11.8 sec Prothrombin Time INR 0.90 0.9-1.15 Activated Partial Thromboplast Time 24.2 L 24.5-34.5 SEC Sodium Level 138 136-145 mmol/L Potassium Level 4.0 3.5-5.1 mmol/L Chloride Level 108 H 98-107 mmol/L Carbon Dioxide Level 19 L 20-31 mmol/L Anion Gap 11 5-15 Blood Urea Nitrogen 8 L 9-23 mg/dL Creatinine 0.66 0.550-1.02 mg/dL Glomerular Filtration Rate Calc 127 >90 mL/min BUN/Creatinine Ratio 12.1 10.0-20.0 Serum Glucose 82 74-106 mg/dL Hemoglobin A1c 5.6 <5.7 % A1C Calcium Level 8.6 L 8.7-10.4 mg/dL Total Bilirubin 0.3 0.2-1.0 mg/dL Aspartate Amino Transferase (AST) 18 13-40 U/L Alanine Aminotransferase (ALT) 14 7-40 U/L Alkaline Phosphatase 165 H 46-116 U/L Total Protein 6.7 5.7-8.2 g/dL Albumin 3.9 3.2-4.8 g/dL Treponema pallidum Antibody Non-reactive Negative Hepatitis B Surface Antigen Negative Negative Hepatitis C Antibody Negative Negative HIV (1&2) Antibody Negative Negative Rubella Antibody Pending Assessment Assessment Hospital Day #2 Induction for Polyhydramnios Plan Plan Continue induction Cytotec Plan discussed with: Patient Visit Coding OBGYN Date of Service: May 15, 2025 Billing Provider: MILES ESCALANTE DO FLOOR SANDING MACHINE OPERATOR Common Visit Codes: [id number] INP/OBS CARE(HIGH), 40894-FNT/OBS SAME DATE (LOW), 67242-NGQ/OBS SAME DATE (MOD) FLOOR SANDING MACHINE OPERATOR Procedure Codes: [id number] DEL INCLUDING MILES ESCALANTE DO May 15, 2025 07:51
[2025-05-15] MEDS: ACETAMINOPHEN 500 MG TAB or CAP PO PRN (09:35)
[2025-05-15] MEDS: ONDANSETRON HCL 4 MG/2 ML VIAL IV PRN (19:32)
[2025-05-15] MEDS: PENICILLIN G POT 5MIL/D5 50ML 50 ML IV ONE (21:02)
[2025-05-15] MEDS: LACT. RINGERS/OXYTOCIN 20UNITS 1,000 ML IV SCH (21:06)
[2025-05-16] VITALS (7 sets, daily range): BP systolic 106–118; BP diastolic 57–80; PULSE 87–106; RESP 15–16; TEMP 97.9–98.5; O2SAT 97–99
[2025-05-16] MEDS: PENICILLIN G POTASSIUM 2,500,000 UNITS in D5W 5% 50 ML IV SCH (00:13)
[2025-05-16 01:41] LABS: Protein, Urine 17.4 mg/dL (1-14)
--- NOTE | 2025-05-16 11:30 | LDN2 ---
Labor and Delivery Note Date 05/16/25 Age 24 See operative note emergent primary section Labs Laboratory Tests 05/14/25 17:19: Hepatitis B Surface Antigen Negative, HIV (1&2) Antibody Negative, Rubella Antibody Positive Blood Bank 05/14/25 17:19: Blood Type A POSITIVE Complications Nonreassuring heart tones taken for emergent section repetitive late decelerations heart tones Visit Coding OBGYN Date of Service: May 16, 2025 Billing Provider: MILES ESCALANTE DO WAFER FAB OPERATOR Common Visit Codes: 74910-EKR/OBS SAME DATE (HIGH) WAFER FAB OPERATOR Procedure Codes: 71379-QPUCI OB CARE, DEL MILES ESCALANTE DO May 16, 2025 11:30
[2025-05-16] MEDS: LACTATED RINGER'S 1,000 ML IV ONE (13:36)
[2025-05-16] MEDS: ROPIVACAINE HCL 100 ML ONE (13:38)
--- NOTE | 2025-05-16 15:58 | DVHPN2 ---
Chief Complaints Patient reports: No new complaints Nursing reports: No new complaints, No abdominal pain, No chest pain, No dizziness, No cough Objective Medications Current Medications Medications (Trade) Dose Ordered Sig/Marco Route PRN Reason Start Time Stop Time Status Last Admin Oxytocin 1,000 ml @ 6 ml/hr Q24H IV 05/15/25 19:15 05/15/25 21:06 General: Normal Lungs: Normal Cardiovascular: Normal Abdominal: Normal (Gravid Mario's 7 0.6 lb) Musculoskeletal: Normal Extremities: Normal Skin: Normal Studies Laboratory Tests 05/14/25 17:19 Test 05/14/25 17:19 Range/Units Serum Glucose 82 74-106 mg/dL Ass/Plan Assessment Patient is having repetitive late decelerations and heart tones she has had minimal progress in the last 2 hours recommended either continuing with amnio infusion internals IUPC FSE or section patient would like to proceed with section at this time and I concurred with her decision. She understands that we could continue at this rate that the heart tones were not ominous but given insert 1st baby and she has had very little descent despite dilation seems reasonable to mitigate any damage to the fetus to proceed with . We discussed the risks benefits complications alternatives not limited infection bleeding anesthesia acute chronic pain damage to adjacent organs transfusion hep B HIV transfusion transfusion reaction mi stroke damage to adjacent organs ureters bowel muscles vessels. Patient understands she will have the option for in the future as a tertiary center but she also will have the option for scheduled if she gets her care. All questions answered from her and her significant other and they would like to proceed with . Plan Emergent primary low transverse section OR notified nursing staff notified. MILES ESCALANTE DO May 16, 2025 15:58
[2025-05-16] MEDS ORDERED: KETOROLAC TROMETH 30 MG/ML 1ML VIAL ONE (16:03)
[2025-05-16] MEDS ORDERED: ONDANSETRON HCL 4 MG/2 ML VIAL ONE (16:03)
[2025-05-16] MEDS ORDERED: MORPHINE SULF PF 5 MG/10 ML VIAL ONE (16:04)
[2025-05-16] MEDS ORDERED: fentaNYL CITRATE 100 MCG/2 ML VL ONE (16:04)
[2025-05-16] MEDS ORDERED: LIDOCAINE 2% (LOCAL ANESTH.) PF 5ml SDV ONE (16:06)
--- NOTE | 2025-05-16 16:20 | DVHOP2 ---
Operative Report - 2 Report Details Date: 05/16/25 Preop Diagnosis: Patient here for induction polyhydramnios, she progressed to 9 cm-1 station and has been having recurrent repetitive late decelerations of the heart tones nonreassuring. She had no significant descent over 2 hours. She was positive THC on admission to 1 P0 39 weeks and 4/7 days Postop Diagnosis: Same Surgeon: Nehemiah Escalante Anesthesiologist: PEREZ Anesthesia: Regional (Bolus epidural) Drains: Nicolas catheter Implant: None Consent: The patient was informed of the risks and benefits of the procedure. These include but are not limited to complications of anesthesia, postoperative infection, incomplete relief of symptoms, recurrence of symptoms, damage to blood vessels, nerves and tendons, deep venous thrombosis, pulmonary embolism and possible need for repeat surgery in the future. Complications: None Estimated Blood Loss: 600 cc Fluids: See anesthesia log Findings: Infant vigorous cry and tone nuchal cord clear amniotic fluid Indications for Surgery: Repetitive decreased heart tones after contractions. Name of Procedure Performed Primary low transverse Procedure Details Procedure Details: Patient taken the operating placed in sitting position were her existing epidura l was bolused she was then placed left lateral tilt prepped draped sterile fashion low Pfannenstiel incision made with scalpel and carried through the rectus fascia nicked in midline carried laterally rectus muscle midline peritoneum identified entered with sharp dissection peritoneal incision extended vesicouterine peritoneum was dissected off the uterine segment and low uterine transverse incision made with scalpel to the current membranes which were hour glassing and ruptured with hemostat clear amniotic fluid; I placed my hand (occiput posterior) in lower uterine segment in head essentially delivered spontaneously nose and mouth bulb suctioned vigorous cry and tone cord cut and cord gases sent as well as umbilical cord blood sample. Placenta then removed uterus exteriorized cleared of all clots and debris and closed with a double layer of 0 Vicryl incorporating the bladder flap into the 2nd continuous running Vicryl. We cleared the abdominal gutters all clots debris irrigated uterus is firm and no evidence of bleeding EBL 600 cc. This point instrument laps sponge count correct x1 peritoneum closed running continuous 2-0 Vicryl rectus muscles CLOtest with a running continuous looped PDS Camper's Bebo's fascia approximated with 2-0 chromic and the skin was closed with a subcuticular 3-0 Prolene benzoin Steri-Strips placed ABD pad and pressure dressing placed. Patient taken recovery room stable condition went to the nursery. Findings male infant Apgars 8 9 weight pending. Specimen: Placenta blood gas umbilical cord sample blood Condition Good Disposition PACU MILES ESCALANTE DO May 16, 2025 16:20
[2025-05-16] MEDS ORDERED: SODIUM BICARB 8.4% 50Meq/50ml SYR Vial IV ONE (16:21)
[2025-05-16] MEDS: LACTATED RINGER'S 1,000 ML IV SCH (16:30)
[2025-05-16] MEDS ORDERED: ceFAZolin 1GM/50ML 50 ML IV SCH (16:30)
[2025-05-16] MEDS ORDERED: ONDANSETRON HCL 4 MG/2 ML VIAL IV PRN ×2 (16:30→17:30)
[2025-05-16] MEDS ORDERED: MORPHINE SULFATE 4 MG/ML SYR/VIAL IV PRN (16:30)
[2025-05-16] MEDS ORDERED: ceFAZolin 1GM VL ONE (16:41)
[2025-05-16] MEDS ORDERED: SODIUM CHLORIDE LOCK 10 ML ONE (16:41)
[2025-05-16] MEDS ORDERED: NALOXONE HCL 0.4 MG/ML VIAL IV PRN (17:30)
[2025-05-16] MEDS ORDERED: NALBUPHINE HCL 10 MG/1ml INJECTION IV ONE (17:30)
[2025-05-16] MEDS ORDERED: diphenhdrAMINE HCL 50 MG/1 ML VL IV PRN (17:30)
[2025-05-16] MEDS ORDERED: HYDROmorphone HCL 2 MG/ML VL/or syr IV PRN (17:30)
[2025-05-16] MEDS ORDERED: KETOROLAC TROMETH 30 MG/ML 1ML VIAL IV PRN (18:30)
[2025-05-17] VITALS (17 sets, daily range): BP systolic 98–121; BP diastolic 55–81; PULSE 85–112; RESP 16–18; TEMP 98–98.7; O2SAT 98–100
[2025-05-17] MEDS: ceFAZolin 1GM/50ML 50 ML IV SCH (01:25)
[2025-05-17] MEDS: ACETAMINOPHEN IV 1000 MG/100ML (10MG/ML) IV PRN (05:34)
--- NOTE | 2025-05-17 05:35 | DVHPN2 ---
Chief Complaints Patient reports: No new complaints, Feels better Nursing reports: No new complaints, No abdominal pain, No chest pain, No dizziness, No cough Objective Vitals Vital Signs Date Time Temp Pulse Resp B/P (MAP) Pulse Ox O2 Delivery O2 Flow Rate FiO2 05/17/25 03:10 112 16 99 05/16/25 18:00 Room Air 0 100 05/16/25 18:00 95/57 (70) 05/16/25 17:21 97.9 97.9 Medications Current Medications Medications (Trade) Dose Ordered Sig/Marco Route PRN Reason Start Time Stop Time Status Last Admin Acetaminophen (Ofirmev) 1,000 mg Q8HPRN PRN IV PAIN SCALE 1-3 OR TEMP>100.4 05/16/25 18:30 05/17/25 14:01 Cefazolin Sodium 50 ml @ 100 mls/hr Q8H IV 05/16/25 16:30 05/17/25 08:59 Cancel Cefazolin Sodium 50 ml @ 100 mls/hr Q8H IV 05/17/25 00:30 05/17/25 08:59 05/17/25 01:25 Diphenhydramine HCl (Benadryl Injection) 25 mg Q4HP PRN IV FOR ITCHING 05/16/25 17:30 Ketorolac Tromethamine (Toradol Injection) 30 mg Q8HPRN PRN IV MODERATE PAIN (4-6 PAIN SCALE) 05/16/25 18:30 05/21/25 18:29 Lactated Ringer's 1,000 ml @ 125 mls/hr Q8H IV 05/16/25 16:30 Ondansetron HCl (Zofran) 4 mg Q4HP PRN IV NAUSEA / VOMITING 05/16/25 17:30 General: Normal Lungs: Normal Cardiovascular: Normal Abdominal: Normal (Wounds C/C /I) Musculoskeletal: Normal Extremities: Normal Skin: Normal Studies Laboratory Tests 05/14/25 17:19 Test 05/14/25 17:19 Range/Units Serum Glucose 82 74-106 mg/dL Ass/Plan Assessment Patient is having repetitive late decelerations and heart tones she has had minimal progress in the last 2 hours recommended either continuing with amnio infusion internals IUPC FSE or section patient would like to proceed with section at this time and I concurred with her decision. She understands that we could continue at this rate that the heart tones were not ominous but given insert 1st baby and she has had very little descent despite dilation seems reasonable to mitigate any damage to the fetus to proceed with . We discussed the risks benefits complications alternatives not limited infection bleeding anesthesia acute chronic pain damage to adjacent organs transfusion hep B HIV transfusion transfusion reaction mi stroke damage to adjacent organs ureters bowel muscles vessels. Patient understands she will have the option for in the future as a tertiary center but she also will have the option for scheduled if she gets her care. All questions answered from her and her significant other and they would like to proceed with . Plan POD #1 stable improved advance care MILES ESCALANTE DO May 17, 2025 05:35
[2025-05-17 09:00] LABS: Hematocrit 26.5 % (36.0-46.0); Hemoglobin 8.8 g/dL (12.2-16.2); Mean Corpuscular Hemoglobin 28.2 pg (28.0-32.0); Mean Corpuscular Volume 84.7 fL (80.0-100.0); Nucleated Red Blood Cells % 0.1 %
[2025-05-17 13:08] LABS: Chlamydia Trachomatis, NAA Negative (Negative); Neisseria gonorrhoeae, NAA Negative (Negative)
[2025-05-17] MEDS ORDERED: BISACODYL 10 MG RECT SUPP PR PRN (17:45)
[2025-05-17] MEDS: HYDROcodone-ACET 10/325MG TAB PO PRN (19:05)
[2025-05-17] MEDS: SIMETHICONE 80 MG CHEWABLE TABLET PO SCH (23:27)
[2025-05-17] MEDS: IBUPROFEN 800 MG TAB PO PRN (23:28)
[2025-05-17] MEDS: DOCUSATE SOD 100 MG CAP PO SCH (23:28)
[2025-05-18 03:00] VITALS: BP 105/93; PULSE 93; RESP 17; TEMP 98.1; O2SAT 95
[2025-05-18] MEDS: HYDROcodone-ACET 5/325MG TAB PO PRN (03:52)
[2025-05-18 07:30] VITALS: BP_SYST 110; BP_SYST 117; BP_DIAS 72; BP_DIAS 79; PULSE 102; PULSE 103; RESP 16; RESP 18; TEMP 98.7; TEMP 98.9; O2SAT 99
[2025-05-18 11:01] VITALS: BP 120/77; PULSE 97; RESP 18; TEMP 97.9; O2SAT 99
[2025-05-18 14:56] VITALS: BP_SYST 108; BP_SYST 117; BP_DIAS 66; BP_DIAS 79; PULSE 109; PULSE 92; RESP 18; TEMP 98.1; O2SAT 99
--- NOTE | 2025-05-18 17:05 | DVHPN2 ---
Chief Complaints Patient reports: No new complaints, Feels better Nursing reports: No new complaints, No abdominal pain, No chest pain, No dizziness, No cough Objective Vitals Vital Signs Date Time Temp Pulse Resp B/P (MAP) Pulse Ox O2 Delivery O2 Flow Rate FiO2 05/18/25 14:56 98.1 92 18 108/66 (80) 99 98.1 05/18/25 07:30 Room Air 05/16/25 18:00 0 100 Medications Current Medications Medications (Trade) Dose Ordered Sig/Marco Route PRN Reason Start Time Stop Time Status Last Admin Acetaminophen/ Hydrocodone Bitart ([place] 10/325MG Tab) 1 tab Q4HPRN PRN PO FOR PAIN 7-10 05/17/25 19:00 05/18/25 12:22 Acetaminophen/ Hydrocodone Bitart ([place] 5/325MG Tab) 1 tab Q4HPRN PRN PO FOR PAIN 1-6 05/17/25 17:45 05/18/25 03:52 Bisacodyl (Dulcolax Suppository) 10 mg DAILYP PRN OK FOR CONSTIPATION 05/17/25 17:45 Dimethicone (Mylicon Tab) 80 mg QID PO 05/17/25 18:00 05/18/25 12:21 Docusate Sodium (Colace Capsule) 100 mg Q12HR PO 05/17/25 22:00 05/18/25 10:25 Ibuprofen (Motrin Tablet) 800 mg Q8HP PRN PO BREAKTHROUGH PAIN 05/17/25 17:45 05/18/25 10:29 General: Normal Lungs: Normal Cardiovascular: Normal Abdominal: Normal (Wounds C/C /I) Musculoskeletal: Normal Extremities: Normal Skin: Normal Studies Laboratory Tests 05/17/25 08:35 05/14/25 17:19 Test 05/14/25 17:19 Range/Units Serum Glucose 82 74-106 mg/dL Ass/Plan Assessment s/p pcs Plan dc home fu 1wk Visit Coding OBGYN Date of Service: May 18, 2025 Billing Provider: ALANA KAM DO STEEL CHIPPER Common Visit Codes: [id number] OBS CARE (HIGH) STEEL CHIPPER Procedure Codes: [id number] DELIVERY ONLY ALANA KAM DO May 18, 2025 17:05
--- NOTE | 2025-05-18 17:06 | DVHDS2 ---
Obstetrics Discharge Summary Obstetrics Discharge Summary Date of Admission: May 15, 2025 Date of Discharge: May 18, 2025 Reason For Admission: Induction of Labor Procedures: NST Intrapartum Procedures: (Low Cervical Transverse) Procedures: None Operative Complicat: None Discharge Diagnosis: Term -Delivered Discharge Information: Activity (Other), Diet (Routine), Medications (Name:), Instructions (Routine), Discharge to (Home), Discarge date (05-18) Visit Coding OBGYN Date of Service: May 18, 2025 Billing Provider: ALANA KAM DO MACHINE ATTENDANT Common Visit Codes: [id number] OBS CARE (HIGH), 36322-MTB/OBS DISCH DAY >30MIN MACHINE ATTENDANT Procedure Codes: [id number] DELIVERY ONLY ALANA KAM DO May 18, 2025 17:06
[2025-05-18] MEDS ORDERED: HYDR-4072 PO (17:08)
[2025-05-18] MEDS ORDERED: DOCU-94 PO (17:08)
[2025-05-18] MEDS ORDERED: IBUP-1456 PO (17:08)
[2025-05-18 19:07] VITALS: BP 143/87; PULSE 110; RESP 17; TEMP 98.9; O2SAT 99
--- NOTE | 2025-05-18 19:39 | DVHDS2 ---
Discharge Summary Discharge Summary Patient is 24 y/o Delivery of viable male Primary Section 05/16/2025 @ 1650 First Degree Lower Cervical Transverse Section for failure to descend. Delivery of viable male 6lb 13 oz and placenta QBL 425 Ml Blood Type A Positive Antibody negative GBS Negative Rubella Immune Problems Polyhydramnios Objective Physical Assessment Fundus firm @ -2 below umbilicus, midline, lochia scant with rubra bleeding ' Abdomen tender to palpation Reports mild pain with assessment Incision clean and dried with steri-strips No Edema. no foul odor, warm to touch, no oozing or bleeding at site. Breasts: Inverted nipples noted, using a nipple shield for Breast engorged and tender to palpation Hand expression done Lower Extremities: No S/SS DVT / Cool to touch / Negative homens signs Ambulated to bathroom to void/ passing gas. Regular diet tolerated well Vital Signs Date Time Temp Pulse Resp B/P (MAP) Pulse Ox O2 Delivery O2 Flow Rate FiO2 05/18/25 19:07 98.9 110 17 143/87 (105) 99 98.9 05/18/25 07:30 Room Air 05/16/25 18:00 0 100 Laboratory Tests Test 05/17/25 08:35 05/15/25 23:54 05/15/25 23:44 05/14/25 17:30 Range/Units White Blood Count 17.0 #H 4.4-10.8 10^3/uL Red Blood Count 3.13 L 4.0-5.20 10^6/uL Hemoglobin 8.8 L 12.2-16.2 g/dL Hematocrit 26.5 L 36.0-46.0 % Mean Corpuscular Volume 84.7 80.0-100.0 fL Mean Corpuscular Hemoglobin 28.2 28.0-32.0 pg Mean Corpuscular Hemoglobin Concent 33.3 32.0-36.0 g/dL Red Cell Distribution Width 14.5 H 11.8-14.3 % Platelet Count 330 140-450 10^3/uL Mean Platelet Volume 7.4 6.9-10.8 fL Neutrophils (%) (Auto) 89.2 H 37.0-80.0 % Lymphocytes (%) (Auto) 7.5 L 10.0-50.0 % Monocytes (%) (Auto) 3.2 0.0-12.0 % Eosinophils (%) (Auto) 0.0 0.0-7.0 % Basophils (%) (Auto) 0.1 0.0-2.0 % Neutrophils # (Auto) 15.1 H 1.6-8.6 10 ^3/uL Lymphocytes # (Auto) 1.3 0.4-5.4 10 ^3/uL Monocytes # (Auto) 0.5 0-1.3 10 ^3/uL Eosinophils # (Auto) 0 0-0.8 10 ^3/uL Basophils # (Auto) 0 0-0.2 10 ^3/uL Nucleated Red Blood Cells 0.1 % Urine Creatinine 19.32 L 30.0-125.0 mg/dL Urine Protein/Creatinine Ratio 0.90 Urine Total Protein 17.4 H 1-14 mg/dL Uric Acid 4.1 3.1-7.8 mg/dL Urine Color Light-yellow Yellow Urine Clarity Turbid H Clear Urine pH 7.5 5.0-9.0 Urine Specific [place] 1.021 1.001-1.035 Urine Protein Trace H Negative Urine Ketones Negative Negative Urine Blood Negative Negative /uL Urine Nitrite Negative Negative Urine Bilirubin Negative Negative Urine Urobilinogen Normal Negative mg/dL Urine Leukocyte Esterase 3+ Negative /uL Urine RBC <1 0 - 4 /hpf Urine Microscopic WBC 1 0-5 /HPF Urine Squamous Epithelial Cells Mod <5 /hpf Urine Bacteria None seen None Seen /hpf Urine Mucus Few None Seen Urine Glucose Normal Normal mg/dL Urine Opiates Screen Neg NEGATIVE Urine Fentanyl Screen Neg NEGATIVE Urine Barbiturates Screen Neg NEGATIVE Urine Phencyclidine Screen Neg NEGATIVE Urine Amphetamines Screen Neg NEGATIVE Urine Benzodiazepines Screen Neg NEGATIVE Urine Cocaine Screen Neg NEGATIVE Urine Cannabinoids Screen Pos NEGATIVE Chlamydia trachomatis (BELINDA) Negative Negative Neisseria gonorrhoeae (BELINDA) Negative Negative Test 05/14/25 17:19 Range/Units Prothrombin Time 9.6 9.3-11.8 sec Prothrombin Time INR 0.90 0.9-1.15 Activated Partial Thromboplast Time 24.2 L 24.5-34.5 SEC Sodium Level 138 136-145 mmol/L Potassium Level 4.0 3.5-5.1 mmol/L Chloride Level 108 H 98-107 mmol/L Carbon Dioxide Level 19 L 20-31 mmol/L Anion Gap 11 5-15 Blood Urea Nitrogen 8 L 9-23 mg/dL Creatinine 0.66 0.550-1.02 mg/dL Glomerular Filtration Rate Calc 127 >90 mL/min BUN/Creatinine Ratio 12.1 10.0-20.0 Serum Glucose 82 74-106 mg/dL Hemoglobin A1c 5.6 <5.7 % A1C Calcium Level 8.6 L 8.7-10.4 mg/dL Total Bilirubin 0.3 0.2-1.0 mg/dL Aspartate Amino Transferase (AST) 18 13-40 U/L Alanine Aminotransferase (ALT) 14 7-40 U/L Alkaline Phosphatase 165 H 46-116 U/L Total Protein 6.7 5.7-8.2 g/dL Albumin 3.9 3.2-4.8 g/dL Treponema pallidum Antibody Non-reactive Negative Hepatitis B Surface Antigen Negative Negative Hepatitis C Antibody Negative Negative HIV (1&2) Antibody Negative Negative Rubella Antibody Positive Current Medications Medications (Trade) Dose Ordered Sig/Marco Route PRN Reason Start Time Stop Time Status Last Admin Dose Admin Lactated Ringer's 1,000 ml @ 125 mls/hr Q8H IV 05/14/25 16:45 05/16/25 18:28 DC 05/16/25 13:36 Nalbuphine HCl (Nubain) 10 mg Q4HP PRN IV MODERATE PAIN (4-6 PAIN SCALE) 05/14/25 16:45 05/14/25 18:42 DC Rock Valdes (Tucks) 1 pad PRN PRN TOP PERINEAL AREA DISCOMFORT 05/14/25 16:45 05/14/25 21:18 Sodium Lauryl Sulfate (Phisoderm) 240 ml PRN PRN TOP PERINEAL AREA DISCOMFORT 05/14/25 16:45 05/14/25 21:18 Benzocaine (Dermoplast) 1 applic PRN PRN TOP PERINEAL AREA DISCOMFORT 05/14/25 16:45 05/14/25 21:17 Lidocaine HCl (Xylocaine) 20 ml ONCE PRN IJ PERINEAL AREA DISCOMFORT 05/14/25 16:45 05/16/25 18:28 DC 05/14/25 21:17 Oxytocin 500 ml @ 999 mls/hr Q31M ONCE IV 05/14/25 16:45 05/14/25 17:15 DC Oxytocin 500 ml @ 125 mls/hr Q4H ONCE IV 05/14/25 17:15 05/14/25 21:14 DC Nalbuphine HCl (Nubain) 10 mg Q4HP PRN IV MODERATE PAIN (4-6 PAIN SCALE) 05/14/25 18:30 05/16/25 18:28 DC Penicillin G Potassium 50 ml @ 100 mls/hr ONCE ONCE IV 05/14/25 18:30 05/14/25 18:59 DC 05/15/25 21:02 Penicillin G Potassium 2488635 units/Dextrose 50 ml @ 100 mls/hr Q4H IV 05/14/25 22:30 05/16/25 18:28 DC 05/16/25 12:31 Ondansetron HCl (Zofran) 4 mg Q4HPRN PRN IV NAUSEA / VOMITING 05/14/25 18:30 05/16/25 17:36 DC 05/16/25 03:17 Misoprostol (Cytotec) 50 mcg Q4HPRN PRN PO CERVICAL RIPENING 05/14/25 19:15 05/16/25 18:28 DC 05/15/25 16:45 Acetaminophen (Tylenol Tablet Or Capsule) 1,000 mg Q8HP PRN PO MODERATE PAIN (4-6 PAIN SCALE) 05/15/25 07:45 05/15/25 08:23 DC Acetaminophen (Tylenol Tablet Or Capsule) 1,000 mg Q8HP PRN PO FOR HEADACHE 05/15/25 08:30 05/16/25 18:28 DC 05/16/25 13:35 Oxytocin 1,000 ml @ 6 ml/hr Q24H IV 05/15/25 19:15 05/16/25 18:28 DC 05/15/25 21:06 Ephedrine Sulfate (ePHEDrine SULFATE) 10 mg PRN ONCE IV 05/16/25 09:00 05/16/25 09:01 Cancel Lactated Ringer's 1,000 ml @ 1,000 mls/hr Q1H ONCE IV 05/16/25 09:00 05/16/25 23:12 DC 05/16/25 13:36 Ropivacaine 100 ml @ ud STK-MED ONCE .ROUTE 05/16/25 08:57 05/16/25 23:12 DC 05/16/25 13:38 Epinephrine HCl 1 mg STK-MED ONCE .ROUTE 05/16/25 16:03 05/16/25 16:04 Cancel Ondansetron HCl (Zofran) 8 mg STK-MED ONCE .ROUTE 05/16/25 16:03 05/16/25 16:04 Cancel Dexamethasone Sodium Phosphate (Decadron Injection) 10 mg STK-MED ONCE .ROUTE 05/16/25 16:03 05/16/25 16:04 Cancel Ketorolac Tromethamine (Toradol Injection) 30 mg STK-MED ONCE .ROUTE 05/16/25 16:03 05/16/25 16:04 Cancel Morphine Sulfate (Duramorph) 5 mg STK-MED ONCE .ROUTE 05/16/25 16:04 05/16/25 16:05 Cancel Fentanyl Citrate 100 mcg STK-MED ONCE .ROUTE 05/16/25 16:04 05/16/25 16:05 Cancel Oxytocin 10 unt STK-MED ONCE .ROUTE 05/16/25 16:04 05/16/25 16:05 Cancel Lidocaine HCl 15 ml STK-MED ONCE .ROUTE 05/16/25 16:06 05/16/25 16:07 Cancel Sodium Bicarbonate 50 ml STK-MED ONCE IV 05/16/25 16:21 05/16/25 16:22 Cancel Lactated Ringer's 1,000 ml @ 125 mls/hr Q8H IV 05/16/25 16:30 05/17/25 23:29 Morphine Sulfate 2 mg Q4HP PRN IV SEVERE PAIN (7-10 PAIN SCALE) 05/16/25 16:30 05/16/25 18:28 DC Ondansetron HCl (Zofran) 4 mg Q4HP PRN IV NAUSEA / VOMITING 05/16/25 16:30 05/16/25 17:36 DC Cefazolin Sodium 50 ml @ 100 mls/hr Q8H IV 05/16/25 16:30 05/17/25 08:59 Cancel Cefazolin Sodium (Ancef) 2 gm STK-MED ONCE .ROUTE 05/16/25 16:41 05/16/25 16:42 Cancel Sodium Chloride 10 ml @ ud STK-MED ONCE .ROUTE 05/16/25 16:41 05/16/25 16:42 Cancel Ephedrine Sulfate (ePHEDrine SULFATE) 50 mg STK-MED ONCE .ROUTE 05/16/25 16:42 05/16/25 16:43 Cancel Diphenhydramine HCl (Benadryl Injection) 25 mg Q4HP PRN IV FOR ITCHING 05/16/25 17:30 Ondansetron HCl (Zofran) 4 mg Q4HP PRN IV NAUSEA / VOMITING 05/16/25 17:30 Nalbuphine HCl (Nubain) 10 mg SAMPLING EXPERT ONCE IV 05/16/25 17:30 05/16/25 17:31 Cancel Naloxone HCl (Narcan) 0.2 mg Q5M PRN IV For respirations < than 10/min 05/16/25 17:30 05/16/25 17:36 DC Hydromorphone HCl (Dilaudid Injection) 0.5 mg Q15M PRN IV SEVERE PAIN (7-10 PAIN SCALE) 05/16/25 17:30 05/16/25 18:01 DC Ketorolac Tromethamine (Toradol Injection) 30 mg Q8HPRN PRN IV MODERATE PAIN (4-6 PAIN SCALE) 05/16/25 18:30 05/17/25 17:35 DC Acetaminophen (Ofirmev) 1,000 mg Q8HPRN PRN IV PAIN SCALE 1-3 OR TEMP>100.4 05/16/25 18:30 05/17/25 14:04 DC 05/17/25 13:52 Cefazolin Sodium 50 ml @ 100 mls/hr Q8H IV 05/17/25 00:30 05/17/25 08:59 DC 05/17/25 08:38 Docusate Sodium (Colace Capsule) 100 mg Q12HR PO 05/17/25 22:00 05/18/25 10:25 Dimethicone (Mylicon Tab) 80 mg QID PO 05/17/25 18:00 05/18/25 12:21 Bisacodyl (Dulcolax Suppository) 10 mg DAILYP PRN NM FOR CONSTIPATION 05/17/25 17:45 Ibuprofen (Motrin Tablet) 800 mg Q8HP PRN PO BREAKTHROUGH PAIN 05/17/25 17:45 05/18/25 10:29 Acetaminophen/ Hydrocodone Bitart ([place] 5/325MG Tab) 1 tab Q4HPRN PRN PO FOR PAIN 1-6 05/17/25 17:45 05/18/25 03:52 Acetaminophen/ Hydrocodone Bitart ([place] 10/325MG Tab) 1 tab Q4HPRN PRN PO FOR PAIN 7-10 05/17/25 19:00 05/18/25 12:22 Activity: Unrestricted. Advance as tolerated. Balance activities with rest periods. No heavy lifting, pushing or straining. Pelvic rest x 6 weeks Diet: Routine regular diet rich in fiber, protein, iron and vitamin C with adequate fluid intake. Medications: Ibuprofen 600mg every 6 hours as needed for pain. Colace 100mg twice a day as needed to keep bowel movements soft and prevent constipation. Continue Vitamin and iron Care plan instructions: - self care instructions given - emergency signs and symptoms including but not limited to pre-eclampsia precautions and signs of infection, PPH & of PPD reviewed with patient. -Follow up with OB Provider in 2 weeks and again at 6 weeks - S/SS infection/ bleeding at incision site, edema, or foul smelling discharge from incision or vagina DISCHARGE ORDER INFORMATION Diagnosis- Term , delivered Primary Section for Failure to Descend Discharge Comment (brief hx) Admitted on 05/14/2025 at 39w4d for Induction of labor for polyhydramnios Induction of labor with epidural for pain relief. She progressed to 2nd stage of labor and pushed. No decent noted and requested primary section. Infant direct occiput posterior Normal course otherwise; meeting milestones w/o any problem or complications. Followup/ Referral -Appointment with Heaven Kwon NP 05/25/2025 Additional Instructions -Extensively discussed care and ways to manage bleeding, pain, activity, and at home. - Reviewed warning signs, including PPH, PPD, infection, and pre- eclampsia. Answered all patient questions and concerns -Patient was advised to return to the ER or call 911 if any headaches, dizziness, shortness of breath, chest pain, abdominal pain, bleeding, fevers, or worsening of medical condition. -Patient was counseled about treatment plan, medications, possible side effects, patientverbalized understanding. All questions were answered to the best of my ability. -This discharge took greater then 30 minutes in planning, reviewing documentation, counseling the patient, and discussing with other team members. DISCHARGE MEDICATION docusate sodium 100mg 1 cap PO BID PRN #60 Ref 2 ibuprofen 600mg PO q6 hours PRN 20 days # 80 TAB [place] 5/325 Q4H PRN for pain Visit Coding OBGYN Date of Service: May 18, 2025 Billing Provider: JOSE WONG CNM BUSINESS EXCELLENCE LEADER Common Visit Codes: [id number] [facility]BS CARE (MOD) [facility] [place] [facility]39
== END 2025-05-18 20:35 | disposition home or self-care (01) | DRG 540 ==
LOC: LDRP 16:23 → UNDOADMIN 16:23 → LDRP 16:33
PROVIDERS: ADMIT Obstetrics & Gynecology; ATTEND Obstetrics & Gynecology
PROC: 10D00Z1 Extraction of Products of Conception, Low, Open Approach (ICD-10-PCS; principal; 2025-05-16 16:30)
DX: O40.3XX0 Polyhydramnios, third trimester, not applicable or unspecified (principal); O32.4XX0 Maternal care for high head at term, not applicable or unspecified; Z37.0 Single live birth; O99.824 Streptococcus B carrier state complicating childbirth; O76 Abnormality in fetal heart rate and rhythm complicating labor and delivery; Z3A.39 39 weeks gestation of pregnancy; O69.81X0 Labor and delivery complicated by cord around neck, without compression, not applicable or unspecified
CPT/HCPCS: 36415; 59025; 59200; 76815; 80053; 80307; 81001; 81002; 82570; 82803; 83036; 84156; 84550; 85025; 85610; 85730; 86703; 86762; 86780; 86803; 86850; 86900; 86901; 87340; 94762; 96360; 96361; 96365; 96366; 96374; A4344; G0378; J0131; J0169; J0690; J1100; J1885; J2003; J2405; J2540; J2590; J7060

== ENCOUNTER 2025-05-25 20:35 | Emergency (ER) | payer MEDICAID ==
[~2025-05-25] VITALS: Ht 165.1 cm; Wt 70.4 kg
[~2025-05-25 20:35] MED LIST changes: +DOCU-94 PO; +HYDR-4072 PO; +IBUP-1456 PO
[2025-05-25 20:36] VITALS: BP 116/84; PULSE 105; RESP 16; TEMP 98.7; O2SAT 98
[2025-05-25] MEDS ORDERED: IOHEXOL 300 MG/ML 100ML BOTTLE IJ ONE (20:36)
--- NOTE | 2025-05-25 21:56 | ED.PDOC ---
History of Present Illness(SKN HPI Comments This is a 24 year-old female who presents to the ED with a chief complaint of post-operative site drainage of blood and pus as of X1 hour ago. Patient reports having a done here on 05/16/25 by . Patient reports no complications with the surgery. Patient has no further complaints at this time and otherwise denies N/V/D, redness, itchiness, fever, or chills. REVIEW OF SYSTEMS: General: No fever, no chills, no fatigue HEENT: No sore throat, no earache, no congestion, no neck pain. Cardiac: No chest pain. No palpitations. Lungs: No shortness of breath, no cough. GI: Positive abdominal pain. No nausea. No vomiting. no diarrhea, no constipation : No flank pain. No dysuria, frequency, or urgency. Musculoskeletal: No joint pain. no joint swelling, no extremity edema. Skin: Positive Post-operative site drainage with blood and pus. No rash, no itching. Neuro: No headache, dizziness, or weakness PHYSICAL EXAM: General: Awake, alert and oriented. Mild distress. Skin: Skin in warm, dry and intact. Appropriate color for ethnicity. HEENT: The head is normocephalic and atraumatic. Conjunctivae are clear without exudates or hemorrhage. Sclera is non-icteric. EOM are intact. No signs of nystagmus. Eyelids are normal in appearance without swelling or lesions. Oral mucosa is pink and moist Neck: The neck is supple with painful range of motion. No JVD. Cardiac: Heart rate and rhythm are normal. No murmurs, gallops, or rubs are auscultated. Respiratory: No signs of respiratory distress. Lung sounds are clear in all lobes bilaterally without rales, rhonchi, or wheezes. Abdominal: No abdominal tenderness. Abdomen is soft, without distention, guarding or rigidity. Bowel sounds are present and normoactive in all four quadrants. incision well healing, no surrounding erythema or purulent drainage. Scant serosanguineous drainage noted. Extremities: Upper and lower extremities are atraumatic in appearance without deformity or edema. Neurological: The patient is awake, alert and oriented to person, place, and time with normal speech. Speech is clear. There is no facial asymmetry. Psychiatric: Appropriate mood and affect. Good judgement and insight. Chief Complaint: Wound Check Time Seen by MD: 21:17 Primary Care Provider: NONE History of Present Illness: Medications, Allergies Allergies: Coded Allergies: NO KNOWN ALLERGIES (Unverified , 10/14/24) Home Meds Active Scripts Ibuprofen (Ibuprofen) 800 Mg Tab, 800 MG PO TID PRN for 5 Days, #21 TAB Prov:ALANA KAM DO 05/18/25 Hydrocodone-Acetaminophen (Hydrocodone/Acetaminophen 10-325 mg) 1 Tab Tab, 1 TAB PO Q6HPRN PRN for 7 Days, #28 TAB Prov:ALANA KAM DO 05/18/25 Docusate Sodium (Colace) 100 Mg Cap, 1 CAP PO BID, #60 CAP 2 Refills Prov:ALANA KAM DO 05/18/25 Cephalexin Monohydrate (Cephalexin) 500 Mg Cap, 1 CAP PO TID for 5 Days, #15 CAP Prov:ALBERT BURCIAGA 05/01/25 Cefdinir (Cefdinir) 300 Mg Cap, 1 CAP PO BID for 7 Days, #14 CAP Prov:ANUJA GALLO MD 03/16/25 Cephalexin Monohydrate (Cephalexin) 500 Mg Cap, 1 CAP PO BID for 7 Days, #14 CAP 0 Refills Prov:TARA VALLADARES 10/14/24 Acetaminophen (Acetaminophen) 500 Mg Tab, 500 MG PO Q4HPRN, #30 TAB 0 Refills Prov:TARA VALLADARES 10/14/24 Information Source: Patient Mode of Arrival: Ambulatory Severity: Moderate Timing: Hours Duration: Since onset Mechanism: Preceding Wound Wound Type: Other (post-operative wound ) Immunization Status of Animal: Current Tetanus: UTD Past Medical History PAST MEDICAL HISTORY: Denies Surgical History: , Denies all surgeries GOVERNMENT AFFAIRS FELLOW History: No Pertinent GOVERNMENT AFFAIRS FELLOW History Family History Family History: Unknown Social History Smoker: Non-Smoker Alcohol: Denies ETOH Use Drugs: Denies Drug Use Lives In: Home Was a procedure done? Was a procedure done?: No Differential Diagnosis (INTG) Differential Diagnosis: Cellulitis, Hematoma, Laceration, Other Differential Diagnosis: Abscess, Other X-Ray, Labs, Meds, VS Vital Signs Date Time Temp Pulse Resp B/P (MAP) Pulse Ox O2 Delivery O2 Flow Rate FiO2 05/25/25 20:36 98.7 105 16 116/84 98 98.7 Lab Test 05/25/25 21:57 Range/Units White Blood Count 16.4 H 4.4-10.8 10^3/uL Red Blood Count 3.39 L 4.0-5.20 10^6/uL Hemoglobin 9.6 L 12.2-16.2 g/dL Hematocrit 28.1 L 36.0-46.0 % Mean Corpuscular Volume 82.7 80.0-100.0 fL Mean Corpuscular Hemoglobin 28.4 28.0-32.0 pg Mean Corpuscular Hemoglobin Concent 34.3 32.0-36.0 g/dL Red Cell Distribution Width 14.4 H 11.8-14.3 % Platelet Count 803 *H 140-450 10^3/uL Mean Platelet Volume 6.2 L 6.9-10.8 fL Neutrophils (%) (Auto) 78.4 37.0-80.0 % Lymphocytes (%) (Auto) 13.8 10.0-50.0 % Monocytes (%) (Auto) 6.0 0.0-12.0 % Eosinophils (%) (Auto) 1.5 0.0-7.0 % Basophils (%) (Auto) 0.3 0.0-2.0 % Neutrophils # (Auto) 12.8 H 1.6-8.6 10 ^3/uL Lymphocytes # (Auto) 2.3 0.4-5.4 10 ^3/uL Monocytes # (Auto) 1.0 0-1.3 10 ^3/uL Eosinophils # (Auto) 0.2 0-0.8 10 ^3/uL Basophils # (Auto) 0.1 0-0.2 10 ^3/uL Nucleated Red Blood Cells 0.0 % Platelet Estimate Markedly increased Red Blood Cell Morphology Normal Sodium Level 139 136-145 mmol/L Potassium Level 3.9 3.5-5.1 mmol/L Chloride Level 107 98-107 mmol/L Carbon Dioxide Level 20 20-31 mmol/L Anion Gap 12 5-15 Blood Urea Nitrogen 11 9-23 mg/dL Creatinine 0.63 0.550-1.02 mg/dL Glomerular Filtration Rate Calc 129 >90 mL/min BUN/Creatinine Ratio 17.5 10.0-20.0 Serum Glucose 89 74-106 mg/dL Calcium Level 8.9 8.7-10.4 mg/dL [facility] [id number] [place] [id number] Ph: [phone] DIAGNOSTIC IMAGING Diagnostic Imaging Report : [id number] Signed PATIENT: DIONTE BURCIAGACCT: [id number] UNIT: [id number] : 2000 LOC: ER ROOM / BED: / AGE / SEX: 24 / F ADM STATUS: REG ER SERVICE 40 ORDERING PHYSICIAN: INDIA SNYDER MD PROCEDURE(s): PELUS - PELVIC REASON: Lower Abdominal pain, leaking from wound ORDER NUMBER(s): [id number], ACCESSION NUMBER(s): [id number] INDICATION: Lower Abdominal pain, leaking from wound TECHNIQUE: Multiple real-time grayscale transabdominal sonographic images along with color and duplex Doppler of the uterus and ovaries were obtained. COMPARISON: Ob ultrasound 05/14/2025 FINDINGS: The uterus measures 11.6 x 8.9 x 5.9 cm. The endometrial stripe measures 5 mm. Small amount of gas at the fundal aspect of the endometrial canal. Right ovary measures 2.5 by 0.9 x 1.6 cm with normal Doppler color flow. Left ovary measures 1.8 x 0.8 x 1.5 cm with normal Doppler color flow. Unorganized hypoechoic signal in the subcutaneous tissues measuring up to 6.7 cm in diameter, without evidence of encapsulation or significant hyperemia. No visualized ascites. IMPRESSION: 1. Small amount of gas within the fundal endometrial canal and unorganized fluid within subcutaneous tissues at the site of incision, findings which are likely expected within 7 days of surgery/delivery. 2. No visualized abscess. 3. Unremarkable ovaries. Images Reviewed?: Images reviewed and evaluated by me Time of 1ST Reevaluation: 22:21 Reevaluation 1ST: Unchanged Patient Education/Counseling: Diagnosis, Treatment Family Education/Counseling: No Family Present Medical Screening: No EMC Exist At This Time SEPSIS Sepsis Screen Date sepsis recognized/suspect: May 25, 2025 Time Sepsis recognized/suspect: 2035 Recent Procedure: No On Antibiotic Therapy: No Respiratory Rate >20: No Heart Rate >90: Yes Temp<36 C (96.8 F) or >38.3 C: No SBP <90 or MAP <65 mmHG: No New Acute Mental Status Change: No Is the patient on CPAP, BIPAP,: No Physician Orders Urinalysis (05/25/25 21:41) Pelvic (05/25/25 21:41) Ct Ab Pel With Iv Con Only (05/25/25 23:46) Vital Signs Date Time Temp Pulse Resp B/P (MAP) Pulse Ox O2 Delivery O2 Flow Rate FiO2 05/25/25 20:36 98.7 105 16 116/84 98 98.7 Laboratory Tests Test 05/25/25 21:57 White Blood Count 16.4 10^3/uL (4.4-10.8) H Departure 1 Departure Time of Disposition: 02:53 Impression: Primary Impression: Draining postoperative wound Additional Impression: Thrombocytosis Disposition: HOME / SELF CARE / HOMELESS Condition: Stable Additional Instructions: ED DISCHARGE INSTRUCTIONS Instructions: Please read all instructions provided in this packet carefully. Although you have been discharged from the Emergency Department, this does not mean that you have a "clean bill of health". No definitive diagnosis for your symptoms has been made today. It is possible that you are in the process of developing a serious illness. This is why you must return to the ED without fail if any new or worsening symptoms (especially if your symptoms include chest pain, trouble breathing, abdominal pain, fever, headache, confusion, trouble seeing, or trouble walking) It is also very important that you see a primary care provider (PCP) within the next 3-5 days to follow up. Your platelet count was elevated today. You will need to follow up with your PCP for further evaluation. If you are unable to get an appointment, return to the ED for re-evaluation. Abdominal Pain: Care Instructions Overview Abdominal pain has many possible causes. Some aren't serious and get better on their own in a few days. Others need more testing and treatment. If your pain continues or gets worse, you need to be rechecked and may need more tests to find out what is wrong. You may need surgery to correct the problem. Don't ignore new symptoms, such as fever, nausea and vomiting, urination problems, pain that gets worse, and dizziness. These may be signs of a more serious problem. If you are not getting better, you may need more tests or treatment. The doctor has checked you carefully, but problems can develop later. If you notice any problems or new symptoms, get medical treatment right away. Follow-up care is a fisher part of your treatment and safety. Be sure to make and go to all appointments, and call your doctor if you are having problems. It's also a good idea to know your test results and keep a list of the medicines you take. How can you care for yourself at home? Rest until you feel better. To prevent dehydration, drink plenty of fluids. Choose water and other clear liquids until you feel better. If you have kidney, heart, or liver disease and have to limit fluids, talk with your doctor before you increase the amount of fluids you drink. When you feel like eating, start with small amounts. Do not have alcohol, caffeine, or spicy, hot, or high-fat foods for a day or two. Avoid anti-inflammatory medicines such as aspirin, ibuprofen (Advil, Motrin), and naproxen (Aleve). These can cause stomach upset. Talk to your doctor if you take daily aspirin for another health problem. When should you call for help? Call 911 anytime you think you may need emergency care. For example, call if: You passed out (lost consciousness). You pass maroon or very bloody stools. You vomit blood or what looks like coffee grounds. You have severe belly pain. Call your doctor now or seek immediate medical care if: Your pain gets worse, especially if it becomes focused in one area of your belly. You have a new or higher fever. Your stools are black and look like tar, or they have streaks of blood. You have unexpected vaginal bleeding. You have symptoms of a urinary tract infection. These may include: Pain when you urinate. Urinating more often than usual. Blood in your urine. You are dizzy or lightheaded, or you feel like you may faint. Watch closely for changes in your health, and be sure to contact your doctor if: You are not getting better as expected. Credits for Abdominal Pain: Care Instructions Current as of: June 26, 2023 Author: [employer] Staff Clinical Review Board All [facility] education is reviewed by a team that includes physicians, nurses, advanced practitioners, registered dieticians, and other healthcare professionals. Elevated platelet count: Thrombocytosis is a high platelet count. Platelets are blood cells that stop bleeding by sticking together to form a clot. But too many platelets can sometimes make your blood too sticky. In serious cases, they can cause harmful blood clots. Without treatment, these clots can lead to a heart attack or stroke. Comments 24 Year-old female with serosanguineous drainage from incision Workup negative for sign of major infection or abscess Patient has been prescribed antibiotics by her pantry attendant. She is advised to take these as prescribed. Patient well-appearing, nontoxic. Advised prompt follow-up with PCP, return to the ED with any new, worsening or concerning symptoms. Critical Care Note Critical Care Time?: No Stability Stability form required: No Heart Score Heart Score: Heart Score Response (Comments) Value History N/A 0 EKG N/A 0 Age N/A 0 Risk Factors N/A 0 Troponin N/A 0 Total 0 I personally scribed for INDIA SNYDER MD ([email or web address]) on 05/25/25 at 21:56. Electronically submitted by Nilsa Gamez (triptap). I personally scribed for INDIA SNYDER MD (JAYDAMINCH) on 05/25/25 at 22:00. Electronically submitted by Nilsa Gamez (triptap). I personally scribed for INDIA SNYDER MD (JAYDAMINCH) on 05/25/25 at 23:01. Electronically submitted by Nilsa Gamez (triptap). I personally scribed for INDIA SNYDER MD (JAYDAMINCH) on 05/25/25 at 23:22. Electronically submitted by Nilsa Gamez (triptap). I personally scribed for INDIA SNYDER MD (JAYDAMINCH) on 05/26/25 at 05:10. Electronically submitted by Nilsa Gamez (triptap). INDIA SNYDER MD May 25, 2025 21:56
[2025-05-25 22:25] LABS: Hematocrit 28.1 % (36.0-46.0); Hemoglobin 9.6 g/dL (12.2-16.2); Mean Corpuscular Hemoglobin 28.4 pg (28.0-32.0); Mean Corpuscular Volume 82.7 fL (80.0-100.0); Nucleated Red Blood Cells % 0.0 %
[2025-05-25 22:31] LABS: Potassium 3.9 mmol/L (3.5-5.1); Sodium 139 mmol/L (136-145)
[2025-05-25 22:32] LABS: Anion Gap 12 (5-15); Carbon Dioxide 20 mmol/L (20-31)
[2025-05-25 22:33] LABS: Calcium 8.9 mg/dL (8.7-10.4)
[2025-05-25 22:37] LABS: Glucose 89 mg/dL (74-106)
[2025-05-25 22:38] LABS: BUN/Creatinine Ratio 17.5 (10.0-20.0); Blood Urea Nitrogen 11 mg/dL (9-23)
[2025-05-25 22:39] LABS: Chloride 107 mmol/L (98-107)
[2025-05-25 22:48] LABS: RBC Morphology Normal
--- NOTE | 2025-05-25 22:54 | DVH ---
INDICATION: Lower Abdominal pain, leaking from wound TECHNIQUE: Multiple real-time grayscale transabdominal sonographic images along with color and duplex Doppler of the uterus and ovaries were obtained. COMPARISON: Ob ultrasound 05/14/2025 FINDINGS: The uterus measures 11.6 x 8.9 x 5.9 cm. The endometrial stripe measures 5 mm. Small amount of gas at the fundal aspect of the endometrial canal. Right ovary measures 2.5 by 0.9 x 1.6 cm with normal Doppler color flow. Left ovary measures 1.8 x 0.8 x 1.5 cm with normal Doppler color flow. Unorganized hypoechoic signal in the subcutaneous tissues measuring up to 6.7 cm in diameter, without evidence of encapsulation or significant hyperemia. No visualized ascites. IMPRESSION: 1. Small amount of gas within the fundal endometrial canal and unorganized fluid within subcutaneous tissues at the site of incision, findings which are likely expected within 7 days of surgery /delivery. 2. No visualized abscess. 3. Unremarkable ovaries.
--- NOTE | 2025-05-26 01:56 | DVH ---
Exam: CT CT AB PEL WITH IV CON ONLY History: lower abd pain, fluid leaking wound, r/o abscess COMPARISON: Previous study pelvic ultrasound Technique: Multidetector spiral CT of the abdomen and pelvis was performed from lung bases to pubic s ymphysis. Intravenous contrast was administered during this examination. Portal venous imaging was o btained. Axial, coronal and sagittal multiplanar reformats were performed by the technologist on a [employer] workstation. Radiation Dose : 1. Abdomen/Pelvis: CTDIvol 10.05mGy, DLP 587.7 mGy*cm. Findings: Lower Chest: No acute findings. Liver: Diffuse hypoenhancement relative to the spleen. Elongated right lobe. Gallbladder and Biliary Tree: Unremarkable Pancreas: Unremarkable. Spleen: Unremarkable Adrenal Glands: Unremarkable Kidneys: Normal. Bladder: Decompressed without evident abnormality. Pelvic Organs: Enlarged uterus with myometrial thickening, small amount of gas at the fundal endometr ium, and fluid along a recent incision. Bowel: Normal caliber without wall thickening. No evidence of appendicitis. Vasculature: Unremarkable. Lymphadenopathy: No evident adenopathy. Peritoneum: Small volume pelvic ascites and stranding along the surgical incision. No free air or p eritoneal fluid collection. Abdominal Wall: Recent low transverse incision with stranding and gas. Musculoskeletal: No acute abnormality. IMPRESSION: 1. Recent incision with expected postsurgical findings. No definitive abscess. Recommend [employer] consultation if not already performed. 2. No other acute abdominopelvic abnormality. Radiation optimization: All CT scans at this facility use at least one of these dose optimization radha hniques: automated exposure control mA and/or kV adjustment per patient size (includes targeted exam s where dose is matched to clinical indication) or iterative reconstruction.
[2025-05-26] MEDS: IOHEXOL 300 MG/ML 100ML BOTTLE IJ ONE (02:44)
[2025-05-26] MEDS: ACETAMINOPHEN 500 MG TAB or CAP PO ONE (05:24)
== END 2025-05-26 05:23 | disposition home or self-care (01) ==
LOC: ER 20:35
DX: D75.839 Thrombocytosis, unspecified (principal); Z48.89 Encounter for other specified surgical aftercare; Z79.899 Other long term (current) drug therapy
CPT/HCPCS: 36415; 74177; 76856; 80048; 85025; 99285; Q9967